=== PATIENT | male | born 2005 | race Caucasian/White ===

== ENCOUNTER 2023-09-07 22:24 | Emergency (ER) | payer BC ==
[~2023-09-07] VITALS: Ht 188 cm; Wt 165.9 kg
[2023-09-07 22:33] VITALS: BP 141/80; TEMP 97.5
[2023-09-07] MEDS ORDERED: NAPROSYN500 MG PO (23:05)
[2023-09-07] MEDS ORDERED: FLEXERIL 1010 MG/TAB PO (23:05)
[2023-09-07 23:17] VITALS: PULSE 101
== END 2023-09-07 23:18 | disposition home or self-care (01) ==
LOC: COL.ER 22:24
DX: M62.830 Muscle spasm of back (principal); X50.1XXA Overexertion from prolonged static or awkward postures, initial encounter